=== PATIENT | male | born 1955 | race Caucasian/White ===

== ENCOUNTER 2020-08-30 12:58 | Outpatient (CLI) | payer OTHER | END 2020-08-30 12:59 | disposition home or self-care (01) | LOC: COV 12:58 | PROVIDERS: ATTEND Family Medicine | DX: Z20.828 Contact with and (suspected) exposure to other viral communicable diseases (principal) ==

== ENCOUNTER 2020-11-02 10:04 | Outpatient (CLI) | payer OTHER ==
--- NOTE | 2020-11-02 17:24 | XRAY Report ---
PROCEDURE: Cervical Spine 2 View INDICATIONS: CERVICALGIA,LOW BACK PAIN TECHNIQUE: 3 view(s) of the cervical spine were acquired. COMPARISON: None. FINDINGS: Bones: No fractures or dislocations to the superior endplate of T1 level. The lateral masses of C1 appear intact on the odontoid view. No suspicious bony lesions. C1-C2 relationship is preserved. St raightening of cervical lordosis. Multilevel cervical spondylosis noted by mild degenerative endplate changes small endplate osteophyte formation, and mild disc space loss at C5-6 and C6-7. No acute com pression fractures Soft tissues: No prevertebral soft tissue swelling. IMPRESSION: 1. Cervical spine without acute fracture or dislocation. 2. Mild multilevel cervical spondylosis most pronounced at C5-6 and C6-7 as described above. 3. Straightening of cervical lordosis likely related to positioning and/or concurrent muscle spasms. Reviewed by: Joey Quiñones MD on 11/02/2020 5:23 PM PST Approved by: Joey Quiñones MD on 11/02/2020 5:23 PM PST Station ID: [id number]
--- NOTE | 2020-11-02 17:26 | XRAY Report ---
PROCEDURE: Lumbar Spine 2 View INDICATIONS: CERVICALGIA,LOW BACK PAIN TECHNIQUE: 2 views of the lumbar spine were acquired. COMPARISON: None. FINDINGS: Bones: 5 [id number] vertebrae are present. There is normal bony alignment. No acute vertebral body compression fractures. No suspicious bony lesions. Multilevel spondylitic changes noted at the thoracolumbar junction as well as the lower lumbar spine. There is disc space loss and degenerative endplate changes at these levels. Small plate osteophyte formation is also visualized. There is assoc iated mid and lower lumbar facet arthropathy. Findings are most severe at T12-L1, L4-5, and L5-S1. Soft tissues: Overlying bowel gas pattern is normal. No suspicious soft tissue calcifications. IMPRESSION: Lumbar spine without acute radiographic abnormalities. Multilevel lumbar spondylosis most pronounced at L5-S1 and L4-5. There is also spondylosis at the tho racolumbar junction most pronounced at T12-L1. Reviewed by: Joey Quiñones MD on 11/02/2020 5:25 PM PST Approved by: Joey Quiñones MD on 11/02/2020 5:25 PM PST Station ID: [id number]
== END 2020-11-02 10:05 | disposition home or self-care (01) ==
LOC: DI 10:04
DX: M54.2 Cervicalgia (principal); M54.5 Low back pain; M47.812 Spondylosis without myelopathy or radiculopathy, cervical region; M47.816 Spondylosis without myelopathy or radiculopathy, lumbar region

== ENCOUNTER 2021-04-23 11:20 | Emergency (ER) | payer OTHER ==
[2021-04-23 13:05] VITALS: BP 129/79
--- NOTE | 2021-04-23 13:40 | ED Physician Documentation ---
PD HPI FOCAL NEURO - Stated complaint Stated Complaint: DIZZINESS - Chief complaint Chief Complaint: Neuro - History obtained from History obtained from: Patient - Additional information Additional information: 65-year-old gentleman has had on and off vertigo for the last 2 days. It started Friday morning. On that day he was nauseous. Whenever he turns his head he is vertiginous for about 5 seconds. They pretty much goes away but some very mild feeling off and a very mild headache otherwise. Previously no history of vertigo. Denies any other neurologic symptoms. Review of Systems Ten Systems: 10 systems reviewed and negative Constitutional: denies: Fever, Chills Eyes: reports: Reviewed and negative Ears: reports: Reviewed and negative Nose: reports: Reviewed and negative PD PAST MEDICAL HISTORY - Past Medical History Past Medical History: Yes - Present Medications Home Medications: Ambulatory Orders Medication Instructions Recorded Confirmed Meclizine HCl [Motion Sickness] 25 mg PO Q6H PRN #20 tablet 04/23/21 - Allergies Allergies/Adverse Reactions: Allergies Allergy/AdvReac Type Severity Reaction Status Date / Time No Known Drug Allergies Allergy Verified 04/23/21 11:42 - Social History Does the pt smoke?: No Smoking Status: Never smoker PD ED PE NORMAL - Vitals Vital signs reviewed: Yes - General General: Alert and oriented X 3, No acute distress - HEENT HEENT: PERRL, EOMI, Other (Quickly abating nystagmus on far leftward gaze, TMs normal) - Neck Neck: Supple, no meningeal sign, No bony TTP - Neuro Neuro: Alert and oriented X 3, head teller 2-12 intact, No motor deficit, No sensory deficit, Normal speech, Other (Normal [id number]-[id number] and khlq-rn-yyld testing, normal gait) Results - Vitals Vitals: Vital Signs - 24 hr 04/23/21 04/23/21 11:39 13:04 Temperature 36.4 C L Heart Rate 69 56 L Respiratory 16 21 Rate Blood Pressure 147/80 H 129/79 O2 Saturation 97 99 Oxygen O2 Source Room air PD MEDICAL DECISION MAKING - ED course ED course: 65-year-old gentleman with classic BPPV. Nothing in the history or physical to suggest a central cause. Lora maneuver trialed Departure - Departure Disposition: 01 Home, Self Care Clinical Impression: BPPV (benign paroxysmal positional vertigo) Qualifiers: Laterality: left Qualified Code(s): H81.12 - Benign paroxysmal vertigo, left ear Condition: Good Record reviewed to determine appropriate education?: Yes Instructions: Vertigo Paroxysmal Positional Prescriptions: Meclizine HCl [Motion Sickness] 25 mg PO Q6H PRN #20 tablet PRN Reason: Dizziness Comments: Return if you worsen, follow-up with your primary care physician this week for recheck. Do not drink or drive while taking meclizine as it can be slightly sedating.
== END 2021-04-23 13:49 | disposition home or self-care (01) ==
LOC: ED 11:20
DX: H81.12 Benign paroxysmal vertigo, left ear (principal)
CPT/HCPCS: 99282; 99284